=== PATIENT | male | born 1960 | race Caucasian/White ===

== ENCOUNTER → 2019-10-22 09:27 | Outpatient (CLI) | payer BC, SELFPAY ==
--- NOTE | ~2019-10-22 | CT_ITS ---
EXAMINATION: CT abdomen pelvis w con INDICATION: Lower abdominal pain and constipation TECHNIQUE: Computed tomographic images of the abdomen and pelvis were obtained after the administrati on of 100 cc of Omnipaque 350 intravenous contrast. The dose-length product (DLP) was 749.47 mGy-cm. Automated exposure control and iterative reconstruction technique were employed. COMPARISON: None available FINDINGS: Minimal dependent atelectasis is present in the lung bases. The heart size is normal. Cysts of the liver measure 2.2 cm in the left hepatic lobe. Subtle low-attenuation areas of the spleen trino suring up to 8 mm likely represent benign finding such as lymphangiomas. The pancreas, gallbladder, a nd adrenal glands are normal. The kidneys are unremarkable. There is a 3.1 x 3.0 cm fusiform aneurysm of the infrarenal abdominal aorta. Sigmoid diverticulosis is noted. There is a 3.7 cm segment of wal l thickening in the sigmoid colon. No pathologically enlarged abdominal or pelvic lymph nodes are luis ntified. There is no free intraperitoneal gas or evidence of bowel obstruction. A moderate volume of colonic stool is present. There is mild circumferential wall thickening of the bladder, likely due to chronic outlet obstruction or incomplete distention. IMPRESSION: 1. 3.7 cm segment of wall thickening involving the sigmoid colon. Although findings could be infectio us/inflammatory given the adjacent diverticula, malignancy could have a similar appearance. Would rec ommend further evaluation with colonoscopy if not recently performed. Reviewed, dictated and finalized at location A. IMPRESSION: 1. 3.7 cm segment of wall thickening involving the sigmoid colon. Although find ings could be infectious/inflammatory given the adjacent diverticula, malignanc y could have a similar appearance. Would recommend further evaluation with colo noscopy if not recently performed.
[2019-10-22 09:48] LABS: Estimated Glomerular Filt Rate > 60
== END ==
PROVIDERS: PCP Internal Medicine; Visit Provider Internal Medicine
DX: R10.9 Unspecified abdominal pain (principal)
CPT/HCPCS: 74177; Q9967

== ENCOUNTER 2019-11-24 00:34 | Outpatient (CLI) | payer BC, SELFPAY ==
[2019-11-24 18:12] LABS: SARS-CoV-2 RNA PCR Negative
== END 2019-11-24 00:35 | disposition home or self-care (01) ==
LOC: ANHCOVIDDT 00:34
PROVIDERS: PCP Internal Medicine; Visit Provider Internal Medicine Gastroenterology
DX: Z20.828 Contact with and (suspected) exposure to other viral communicable diseases (principal); Z01.812 Encounter for preprocedural laboratory examination
CPT/HCPCS: 87635; C9803; U0003

== ENCOUNTER 2019-11-26 02:16 | Day surgery (SDC) | payer BC, SELFPAY ==
[2019-11-19 15:18] VITALS: BMI 26.8
--- NOTE | 2019-11-25 11:43 | WPDANESEPPF ---
Anes - Initial Pre Proc Eval Procedure: Operation Date: 11/26/19 07:30 Proposed Procedures p Colonoscopy - Serg Salazar MD Date/Time: 11/25/19 11:43 Surgeon: Serg Salazar MD Pre Op Diagnosis: diverticulitis Patient Data Age: 59 Gender: M Height: 1.78 m Weight: 84.9 kg Allergies Allergy/AdvReac Type Severity Reaction Status Date / Time No Known Allergies Allergy Verified 11/26/19 06:29 Home Medications Medication Instructions Recorded Confirmed Type aspirin 81 mg tablet,delayed 81 mg PO DAILY 11/03/19 11/19/19 History release atorvastatin 40 mg tablet 40 mg PO DAILY 11/03/19 11/19/19 History ezetimibe 10 mg tablet 10 mg PO DAILY 11/03/19 11/19/19 History ticagrelor 60 mg tablet 60 mg PO Q12H 11/03/19 11/26/19 History Wellbutrin SR 40 mg PO DAILY 11/19/19 11/19/19 History Patient hx anesthesia problems: none Family hx anesthesia problems: none [facility] Past Medical History Medical History (Updated 11/26/19 @ 06:47 by Margarito Pacheco DO) Abnormal CT scan, colon CAD (coronary artery disease) Diverticulitis large intestine Heart attack 2018 Hyperlipidemia Tobacco abuse Surgical History Surgical History (Updated 11/26/19 @ 06:47 by Margarito Pacheco DO) History of coronary artery stent placement x5 stents, 2018 Social History Social History Smoking status: Current every day smoker Tobacco type: cigarettes Living arrangements: alone Gender identity (if verbalized by the patient): Male Spiritual care concerns: No Anes - Eval Final PreProcedure Day of Procedure 11/25/19 11:43 Patient weight: overweight Heart: regular rate and rhythm Lungs: clear to auscultation and normal air movement Airway: Mallampati scale class II Neurological: alert and oriented Last oral intake: >/= 8 hours ASA classification: III Emergent: no Anesthetic plan: proceed Anesthesia type and monitoring: general GIVS and standard monitoring Informed Consent: The patient's anesthetic plan and its attendant risks and benefits were discussed with the patient/family/POA. Questions were solicited and answers provided to the satisfaction of the patient/family/POA.
[2019-11-26] MEDS: LACTATED RINGERS 1,000 ML 150 ML IV CONT (06:28)
[2019-11-26 06:31] VITALS: BP 123/80; PULSE 97; RESP 18; TEMP 36.4; O2SAT 97; BMI 26.5
--- NOTE | 2019-11-26 07:35 | WPDHPUPDATE1 ---
History and Physical Update Update Date/Time: 11/26/19 07:35 History and Physical has been reviewed, including an updated exam of the patient. There are NO changes in the patient's condition. Risks, benefits, and alternatives have been discussed and questions answered. Patient agrees to proceed with procedure.
[2019-11-26 07:52] VITALS: BP 131/87; PULSE 75; RESP 17; O2SAT 92
[2019-11-26 08:02] VITALS: BP 110/67; PULSE 67; RESP 18; O2SAT 92
[2019-11-26 08:12] VITALS: BP 112/68; PULSE 75; RESP 18; O2SAT 92
== END 2019-11-26 08:25 | disposition home or self-care (01) ==
PROVIDERS: PCP Internal Medicine; Visit Provider Internal Medicine Gastroenterology
PROC: 0DJD8ZZ Inspection of Lower Intestinal Tract, Via Natural or Artificial Opening Endoscopic (ICD-10-PCS; CPT 45378; principal; 2019-11-26 07:30)
DX: Z12.11 Encounter for screening for malignant neoplasm of colon (principal); D12.4 Benign neoplasm of descending colon; K63.5 Polyp of colon; K57.30 Diverticulosis of large intestine without perforation or abscess without bleeding; K64.8 Other hemorrhoids; I25.10 Atherosclerotic heart disease of native coronary artery without angina pectoris; E78.5 Hyperlipidemia, unspecified; I25.2 Old myocardial infarction; Z79.82 Long term (current) use of aspirin; Z79.01 Long term (current) use of anticoagulants; F17.210 Nicotine dependence, cigarettes, uncomplicated; Z95.5 Presence of coronary angioplasty implant and graft
CPT/HCPCS: 45380; 45385; 88305; J2704; J7120

== ENCOUNTER 2021-01-12 10:06 | Outpatient (CLI) | payer BC, SELFPAY ==
[2021-01-12 12:12] LABS: Hematocrit 45.7 % (42.0-52.0); Hemoglobin 15.6 g/dL (14.0-18.0); Mean Corpuscular HGB Conc 34.1 g/dl (32-36); Mean Corpuscular Hemoglobin 29.8 pg (26-34); Mean Corpuscular Volume 87.2 fl (80-100); Mean Platelet Volume 9.4 fl (7.4-10.4); Platelet Count Result 344 k/mm3 (150-375); Red Blood Count 5.24 M/mm3 (4.6-6.20); Red Cell Distribution Width 12.8 % (11.5-14.5); White Blood Count 8.7 K/mm3 (4.5-10.0)
[2021-01-12 12:27] LABS: Alanine Aminotransferase 18 U/L (4-50); Albumin Level 4.4 g/dL (3.5-5.1); Alkaline Phosphatase 77 U/L (38-126); Anion Gap 12 mmol/L (8-16); Aspartate Amino Transferase 25 U/L (17-59); Bilirubin,Total 0.6 mg/dL (0.2-1.3); Blood Urea Nitrogen 12 mg/dL (9-20); CRP < 0.5 mg/dL (<1.0); Carbon Dioxide 19 mmol/L (22-30); Chloride 103 mmol/L (98-107); Estimated Glomerular Filt Rate > 60; Glucose 86 mg/dL (65-110); Potassium 4.1 mmol/L (3.4-5.0); Sodium 134 mmol/L (137-145)
== END 2021-01-12 10:07 | disposition home or self-care (01) ==
LOC: ANHLAB 10:10
PROVIDERS: PCP Internal Medicine; Visit Provider Nurse Practitioner Family
DX: K57.32 Diverticulitis of large intestine without perforation or abscess without bleeding (principal)
CPT/HCPCS: 36415; 80053; 85027; 86140

== ENCOUNTER 2024-07-16 09:03 | Emergency (ER) | payer MEDICARE, SELFPAY ==
--- NOTE | ~2024-07-16 | CT_ITS ---
EXAMINATION: CT abdomen pelvis w con DATE: 07/16/2024 10:22 INDICATION: Left-sided abdominal pain TECHNIQUE: Computed tomography (CT) of the abdomen and pelvis was performed without intravenous contr ast. Automated exposure control and iterative reconstruction technique were employed. The dose-length product was 544.41 mGy-cm. COMPARISON: None FINDINGS: Mild dependent atelectasis in bilateral lower lobes. 7 mm subpleural nodule in the left lower lobe wi th eccentric calcification statistically most likely to represent sequela of old granulomatous diseas e. Heart size is normal. Atherosclerotic coronary artery calcification. No pericardial or pleural eff usion. No significant change in multiple cysts scattered throughout the liver the largest measuring u p to 2.5 cm. Gallbladder, pancreas, bilateral adrenal glands and kidneys are normal. No significant c hange in a 7 mm likely benign low-attenuation splenic cyst versus hemangioma. Splenic calcific locati on consistent with old granulomatous disease. There are several diverticula along the sigmoid colon w ith mild wall thickening and minimal from trace stranding at the proximal sigmoid colon suspicious fo r diverticulitis. Small bowel and appendix are normal. Bladder is normal. Prostatomegaly measuring 4. 3 x 3.8 cm. No free intraperitoneal gas or fluid. No pathologically enlarged abdominal or pelvic lymp hadenopathy. 2 cm subdermal cystic lesion along the anterior pelvic wall along the cephalad margin of the subcutaneous most likely epidermoid/sebaceous cyst. 3.8 cm diameter fusiform infrarenal abdomina l aortic aneurysm. Mild lumbar and lower thoracic spondylosis. IMPRESSION: 1. Radiographically uncomplicated proximal sigmoid diverticulitis. 2. 7 mm subpleural nodule in the left lower lobe with eccentric calcification most likely sequela of old granulomatous disease although given the eccentric positioning of the calcification would recomme nd 6 month follow-up low-dose noncontrast chest CT. 3. Prostatomegaly. Reviewed, dictated and finalized at location A. IMPRESSION: 1. Radiographically uncomplicated proximal sigmoid diverticulitis. 2. 7 mm subpleural nodule in the left lower lobe with eccentric calcification m ost likely sequela of old granulomatous disease although given the eccentric po sitioning of the calcification would recommend 6 month follow-up low-dose nonco ntrast chest CT. 3. Prostatomegaly.
[2024-07-16 09:07] VITALS: BP 123/93; PULSE 86; RESP 15; TEMP 36.4; O2SAT 99
[2024-07-16 09:08] VITALS: BP 123/93; PULSE 81; RESP 16; O2SAT 99
--- OUTSIDE RECORDS SUMMARY | 2024-07-16 09:09 | XMS_ITS | Referral Summary ---
Author Organization [facility] [place] [address] Address [address] [place] [address] Care Team Providers Care Jammer Hooker Name Role Phone Delta Mcneill MD Primary Care Provider [phone] Allergies No known active allergies Medications atorvastatin (LIPITOR) 80 mg tabletIndicati ons:Coronary artery disease involving [place] coronary artery of [place] heart without angina pectoris,Dysli pidemia, goal LDL below 70,Presence of stent in coronary artery Take 0.5 tablets (40 mg total) by mouth daily 30 tablet 11 4 Active clopidogreL (PLAVIX) 75 mg tablet Take 1 tablet (75 mg total) by mouth daily 90 tablet 3 5 04/14/19 26 Active nitroglycerin (NITROSTAT) 0.4 mg SL tabletIndicati ons:Coronary artery disease involving [place] coronary artery of [place] heart without angina pectoris Place 1 tablet (0.4 mg total) under the tongue every 5 (five) minutes as needed for chest pain 60 tablet 5 Active buPROPion XL (WELLBUTRIN XL) 150 mg 24 hr tabletIndicati ons:Tobacco abuse TAKE 1 TABLET(150 MG) BY MOUTH DAILY 90 tablet 5 Active buPROPion XL (WELLBUTRIN XL) 150 mg 24 hr tabletIndicati ons:Tobacco abuse Take 1 tablet (150 mg total) by mouth daily 90 tablet 5 07/16/19 25 Discontinued Active Problems Problem Noted Date Diagnosed Date Angina pectoris, unspecified 04/14/2024 Cardiomyopathy, ischemic 04/15/2018 Tobacco abuse 11/02/2017 Dyslipidemia, goal LDL below 70 11/02/[address] elevation myocardial infarction (S PRABHJOT) 11/02/2017 Presence of stent in coronary artery 11/02/2017 Coronary artery disease invo lving [place] coronary artery of [place] heart without angina pectoris 11/02/2017 Resolved Problems Problem Noted Date Diagnosed Date Resolved Date Angina pectoris, unspecified 04/03/2022 04/14/2024 Social History Tobacco Use Types Packs/Day Years Used Date Smoking Tobacco: Some Days Smokeless Tobacco: Never Tobacco Cessation:Ready to Q uit: Not Asked; Counseling Given: Not Answered Alcohol Use Standard Drinks/Week Comments No 0 (1 standard drink = 0.6 oz pur e alcohol) Sex and Gender Information Value Date Recorded Sex Assigned at Not on file 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 Gender Identity Not on file Sexual Orientation Not on file Last Filed Vital Signs Vital Sign Reading Time Taken Comments Blood Pressure 112/78 04/14/2024 7:52 AM SENIOR IT BUSINESS ANALYST Pulse 78 04/14/2024 7:52 AM SENIOR IT BUSINESS ANALYST Temperature - - Respiratory Rate - - Oxygen Saturation 97% 04/14/2024 7:52 AM SENIOR IT BUSINESS ANALYST Inhaled Oxygen Concentration - - Weight 87.1 kg (192 lb) 04/14/2024 7:52 AM SENIOR IT BUSINESS ANALYST Height 177.8 cm (5' 10) 04/14/2024 7:52 AM SENIOR IT BUSINESS ANALYST Body Mass Index 27.55 04/14/2024 7:52 AM SENIOR IT BUSINESS ANALYST Plan of Treatment Not on file Insurance [facility] ACCESS CHOICE Care Teams Jammer Hooker Relationship Specialty Start Date End Date Delta Mcneill MD [address] [place] [id number] PCP - General Internal Medicine 10/13/19
--- OUTSIDE RECORDS SUMMARY | 2024-07-16 09:09 | XMS_ITS | Clinical Summary ---
Author Organization [facility] [place] [address] Address [address] [place] [address] Care Team Providers Care Technical Sme Name Role Phone Delta Mcneill MD Primary Care Provider [phone] Allergies No known active allergies Medications atorvastatin (LIPITOR) 80 mg tabletIndicati ons:Coronary artery disease involving [place] coronary artery of [place] heart without angina pectoris,Dysli pidemia, goal LDL below 70,Presence of stent in coronary artery Take 0.5 tablets (40 mg total) by mouth daily 30 tablet 11 4 Active clopidogreL (PLAVIX) 75 mg tablet Take 1 tablet (75 mg total) by mouth daily 90 tablet 3 5 04/14/19 26 Active nitroglycerin (NITROSTAT) 0.4 mg SL tabletIndicati ons:Coronary artery disease involving [place] coronary artery of [place] heart without angina pectoris Place 1 tablet [...] artery 11/02/2017 Coronary artery disease invo lving [place] coronary artery of [place] heart without angina pectoris 11/02/2017 Resolved Problems Problem Noted Date Diagnosed Date Resolved Date Angina pectoris, unspecified 04/03/2022 04/14/2024 Medical History Medical History Date Comments Heart attack (HCC) Family History Medical History Relation Name Comments Pulmonary embolism Father Liver cancer Mother Relation Name Status Comments Father Mother Social History Tobacco Use Types Packs/Day Years Used Date Smoking Tobacco: Some Days Smokeless Tobacco: Never Tobacco Cessation:Ready to Q uit: Not Asked; Counseling Given: Not Answered Alcohol Use Standard Drinks/Week Comments No 0 (1 standard drink = 0.6 oz pur e alcohol) Sex and Gender Information Value Date Recorded Sex Assigned at Not on file 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 Gender Identity Not on file Sexual Orientation Not on file Obstetrics History Last Filed Vital Signs Vital Sign Reading Time Taken Comments Blood Pressure 112/78 04/14/2024 7:52 AM TRUCK DRIVING Pulse 78 04/14/2024 7:52 AM TRUCK DRIVING Temperature - - Respiratory Rate - - Oxygen Saturation 97% 04/14/2024 7:52 AM TRUCK DRIVING Inhaled Oxygen Concentration - - Weight 87.1 kg (192 lb) 04/14/2024 7:52 AM TRUCK DRIVING Height 177.8 cm (5' 10) 04/14/2024 7:52 AM TRUCK DRIVING Body Mass Index 27.55 04/14/2024 7:52 AM TRUCK DRIVING Plan of Treatment Health Maintenance Due Date Last Done Comments Colon Cancer Screening-Colonoscopy 1959 Depression Screening 1959 Fall Risk Assessment 1959 Hepatitis C Screening 1959 Prostate Cancer Screening-PSA 1959 DTaP/Tdap/Td Vaccine (1 - Tdap) 06/08/1970 Hepatitis B Screening 06/08/1977 Pneumococcal vaccine 65+ (1 of 2 - PCV) 06/08/1978 Zoster Vaccine (1 of 2) 06/08/2009 Covid-19 Vaccine (3 - season) 10/21/202312/2020, 09/01/2020 Abdominal Aortic Aneurysm (AAA) Screen 06/08/2024 Well Visit 65+ 06/08/2024 Influenza Vaccine (Season Ended) 2024 Insurance [employer] ACCESS CHOICE Care Teams Technical Sme Relationship Specialty Start Date End Date Delta Mcneill MD [address] [place] [id number] PCP - General Internal Medicine 10/13/19
[2024-07-16 09:16] VITALS: BP 115/79; PULSE 80; RESP 18; O2SAT 98
--- OUTSIDE RECORDS SUMMARY | 2024-07-16 09:31 | XMS_ITS | Clinical Summary ---
Author Organization [facility] [place] [address] Address [address] [place] [address] Care Team Providers Care Geochemistry Teacher Name Role Phone Delta Mcneill MD Primary Care Provider [phone] Allergies No known active allergies Medications atorvastatin (LIPITOR) 80 mg tabletIndicati ons:Coronary artery disease involving [place] coronary artery of [place] heart without angina pectoris,Dysli pidemia, goal LDL below 70,Presence of stent in coronary artery Take 0.5 tablets (40 mg total) by mouth daily 30 tablet 11 4 Active clopidogreL (PLAVIX) 75 mg tablet Take 1 tablet (75 mg total) by mouth daily 90 tablet 3 5 04/14/19 26 Active nitroglycerin (NITROSTAT) 0.4 mg SL tabletIndicati ons:Coronary artery disease involving [place] coronary artery of [place] heart without angina pectoris Place 1 tablet [...] artery 11/02/2017 Coronary artery disease invo lving [place] coronary artery of [place] heart without angina pectoris 11/02/2017 Resolved Problems [...] on file Legal Sex Male 12:39 AM PROGRAM CHECKER Gender Identity Not on file Sexual Orientation Not on file Obstetrics History Last Filed Vital Signs Vital Sign Reading Time Taken Comments Blood Pressure 112/78 04/14/2024 7:52 AM PROGRAM CHECKER Pulse 78 04/14/2024 7:52 AM PROGRAM CHECKER Temperature - - Respiratory Rate - - Oxygen Saturation 97% 04/14/2024 7:52 AM PROGRAM CHECKER Inhaled Oxygen Concentration - - Weight 87.1 kg (192 lb) 04/14/2024 7:52 AM PROGRAM CHECKER Height 177.8 cm (5' 10) 04/14/2024 7:52 AM PROGRAM CHECKER Body Mass Index 27.55 04/14/2024 7:52 AM PROGRAM CHECKER Plan of Treatment Health Maintenance Due Date [...] 2024 Insurance [employer] ACCESS CHOICE Care Teams Geochemistry Teacher Relationship Specialty Start Date End Date Delta Mcneill MD [address] [place] [id number] PCP - General Internal Medicine 10/13/19
--- OUTSIDE RECORDS SUMMARY | 2024-07-16 09:31 | XMS_ITS | Referral Summary ---
Author Organization [facility] [place] [address] Address [address] [place] [address] Care Team Providers Care Licensing Representative Name Role Phone Delta Mcneill MD Primary Care Provider [phone] Allergies No known active allergies Medications atorvastatin (LIPITOR) 80 mg tabletIndicati ons:Coronary artery disease involving [place] coronary artery of [place] heart without angina pectoris,Dysli pidemia, goal LDL below 70,Presence of stent in coronary artery Take 0.5 tablets (40 mg total) by mouth daily 30 tablet 11 4 Active clopidogreL (PLAVIX) 75 mg tablet Take 1 tablet (75 mg total) by mouth daily 90 tablet 3 5 04/14/19 26 Active nitroglycerin (NITROSTAT) 0.4 mg SL tabletIndicati ons:Coronary artery disease involving [place] coronary artery of [place] heart without angina pectoris Place 1 tablet [...] artery 11/02/2017 Coronary artery disease invo lving [place] coronary artery of [place] heart without angina pectoris 11/02/2017 Resolved Problems [...] on file Legal Sex Male 12:39 AM PAYROLL TAX ANALYST Gender Identity Not on file Sexual Orientation Not on file Last Filed Vital Signs Vital Sign Reading Time Taken Comments Blood Pressure 112/78 04/14/2024 7:52 AM PAYROLL TAX ANALYST Pulse 78 04/14/2024 7:52 AM PAYROLL TAX ANALYST Temperature - - Respiratory Rate - - Oxygen Saturation 97% 04/14/2024 7:52 AM PAYROLL TAX ANALYST Inhaled Oxygen Concentration - - Weight 87.1 kg (192 lb) 04/14/2024 7:52 AM PAYROLL TAX ANALYST Height 177.8 cm (5' 10) 04/14/2024 7:52 AM PAYROLL TAX ANALYST Body Mass Index 27.55 04/14/2024 7:52 AM PAYROLL TAX ANALYST Plan of Treatment Not on file Insurance [facility] ACCESS CHOICE Care Teams Licensing Representative Relationship Specialty Start Date End Date Delta Mcneill MD [address] [place] [id number] PCP - General Internal Medicine 10/13/19
[2024-07-16 09:41] LABS: Basophils Absolute Auto 0.1 K/mm3 (0.0-0.1); Basophils Percent Auto 0.9 % (0.2-1.2); Eosinophils Absolute Auto 0.2 K/mm3 (0-0.3); Eosinophils Percent Auto 2.7 % (0-4.4); Hematocrit 49.4 % (42.0-52.0); Hemoglobin 16.3 g/dL (14.0-18.0); Immature Granulocyte Absolute 0.02 K/mm3 (0.00-0.031); Immature Granulocyte Percent A 0.2 % (0-0.5); Lymphocytes Percent Auto 31.2 % (18.3-44.2); Mean Corpuscular Hemoglobin 29.5 pg (26-34); Mean Corpuscular Volume 89.3 fl (80-100); Mean Platelet Volume 9.8 fl (7.4-10.4); Monocytes Absolute Auto 0.8 K/mm3 (0.1-0.6); Monocytes Percent Auto 9.4 % (2.6-8.5); Neutrophils Absolute Auto 4.5 K/mm3 (1.3-6.7); Neutrophils Percent Auto 55.6 % (45.5-73.1); Platelet Count Result 274 k/mm3 (150-375); Red Blood Count 5.53 M/mm3 (4.6-6.20)
[2024-07-16 09:43] LABS: Add Urine Microscopic? NO; Appearance Urine Clear (Clear); Bilirubin Urine Negative (Negative); Blood Urine Negative (Negative); Color Urine Yellow (Yellow); Glucose Urine UA Negative (Negative); Ketones Urine Trace mg/dL (Negative); Leukocyte Esterase Ur Negative LEU/UL (Negative); Nitrate Urine Negative (Negative); Protein Urine Negative (Negative); Specific Grav Ur 1.022 (1.001-1.035); pH Urine 6.5 (5.0-9.0)
[2024-07-16 09:53] LABS: Alanine Aminotransferase 24 U/L (6-50); Albumin Level 4.2 g/dL (3.5-5.1); Alkaline Phosphatase 92 U/L (38-126); Anion Gap 10 mmol/L (4-12); Aspartate Amino Transferase 27 U/L (17-59); Bilirubin,Total 0.6 mg/dL (0.2-1.3); Blood Urea Nitrogen 17 mg/dL (9-20); Calcium 8.9 mg/dL (8.4-10.2); Carbon Dioxide 26 mmol/L (22-30); Chloride 103 mmol/L (98-107); Estimated CRCL calculation 60 ml/min; Estimated Glomerular Filt Rate > 60; Glucose 98 mg/dL (65-110); Lipase 52 U/L (23-300); Sodium 139 mmol/L (137-145)
[2024-07-16 10:00] VITALS: BP 119/73; PULSE 80; RESP 16; O2SAT 95
--- NOTE | 2024-07-16 10:09 | ED.ABDPAIN ---
HPI - Abdominal Pain General Chief Complaint: Abdominal Pain Stated Complaint: flank pain, abd pain Time Seen by Provider: 07/16/24 09:09 Source: patient Mode of arrival: ambulatory Limitations: no limitations History of Present Illness HPI narrative: This is a 64 year old male that presents to the ER for left sided flank/abdominal pain. Reports ongoing over the last couple of weeks. Worsening over the last couple of days. Reports history of diverticulitis. Denies fevers, vomiting, diarrhea, dysuria, hematuria. Related Data Home Medications ?Medication ?Instructions ?Recorded ?Confirmed ?Last Taken ?Type aspirin 81 mg tablet,delayed 81 mg PO DAILY 11/03/19 01/20/21 11/23/19 History release (Adult Aspirin Regimen) atorvastatin 40 mg tablet 40 mg PO DAILY 11/03/19 01/20/21 11/23/19 History ezetimibe 10 mg tablet 10 mg PO DAILY 11/03/19 01/20/21 11/23/19 History ticagrelor 60 mg tablet (Brilinta) 60 mg PO Q12H 11/03/19 01/20/21 11/23/19 History Wellbutrin SR 40 mg PO DAILY 11/19/19 01/20/21 11/23/19 History ciprofloxacin HCl 500 mg tablet 500 mg PO Q12H 01/20/21 01/20/21 Unknown History (Cipro) Allergies Allergy/AdvReac Type Severity Reaction Status Date / Time No Known Allergies Allergy Verified 01/20/21 10:14 Review of Systems Review of Systems: CONSTITUTIONAL: Denies fever GASTROINTESTINAL: Reports abdominal pain. Denies nausea, vomiting, or diarrhea. GENITOURINARY: Denies dysuria or hematuria. All systems reviewed & are unremarkable except as noted in HPI and below PMFSH Past Medical History Medical History Abnormal CT scan, colon CAD (coronary artery disease) Diverticulitis large intestine Heart attack 2018 Hyperlipidemia Tobacco abuse Surgical History Surgical History History of coronary artery stent placement x5 stents, 2018 Social History Social History Tobacco type: cigarettes Living arrangements: alone Gender identity (if verbalized by the patient): Male Spiritual care concerns: No Exam Narrative: GENERAL: Well-appearing, well-nourished, and in no acute distress. HEAD: Normocephalic, atraumatic. EYES: EOMI. CHEST: Clear to auscultation. No respiratory distress. No wheezes rales or rhonchi HEART: Regular rate and rhythm. No murmur heard. Normal peripheral pulses. ABDOMEN: Soft, nontender, nondistended, normal active bowel sounds. EXTREMITIES: Normal range of motion. No edema. SKIN: Warm, dry, no rash. NEURO: No focal deficits. Alert and oriented x3. PSYCH: Normal mood and affect Course Course Emergency Course: Patient updated on his workup and agrees with plan of care Vital Signs Vital signs: Vital Signs Temperature 97.5 F L 07/16/24 09:07 Pulse Rate 86 07/16/24 09:07 Respiratory Rate 15 07/16/24 09:07 Blood Pressure 123/93 H 07/16/24 09:07 Pulse Oximetry 99 07/16/24 09:07 Oxygen Delivery Room Air 07/16/24 09:07 Temperature 97.5 F L 07/16/24 09:07 Pulse Rate 86 07/16/24 09:07 Respiratory Rate 15 07/16/24 09:07 Blood Pressure 123/93 H 07/16/24 09:07 Pulse Oximetry 99 07/16/24 09:07 Oxygen Delivery Room Air 07/16/24 09:07 MDM - Abdominal Pain MDM Narrative Medical decision making narrative: Patient presents to the emergency department for left-sided abdominal pain. He is afebrile and nontoxic appearing. Cbc without leukocytosis. Metabolic panel without concerning findings. Urine without evidence of infection. CT abdomen/pelvis shows uncomplicated sigmoid diverticulitis. Also shows a left lung nodule. Prostatomegaly. Patient updated on his workup and agrees with plan of care. Will be started on oral antibiotics. He is to follow up with his primary care provider. He was given warnings to return to the ER Differential Diagnosis Differential diagnosis: Likely calculus of kidney, constipation and diverticulitis Lab Data Attestation: I reviewed the patient's lab results. 07/16/24 09:33 07/16/24 09:33 Labs: Lab Results 07/16/24 Range/Units 09:33 WBC 8.0 (4.5-10.0) K/mm3 RBC 5.53 (4.6-6.20) M/mm3 Hgb 16.3 (14.0-18.0) g/dL Hct 49.4 (42.0-52.0) % MCV 89.3 (80-100) fl MCH 29.5 (26-34) pg MCHC 33.0 (32-36) g/dl RDW 13.0 (11.5-14.5) % Plt Count 274 (150-375) k/mm3 MPV 9.8 (7.4-10.4) fl Immature Gran % (Auto) 0.2 (0-0.5) % Neut % (Auto) 55.6 (45.5-73.1) % Lymph % (Auto) 31.2 (18.3-44.2) % Mcduffie % (Auto) 9.4 H (2.6-8.5) % Eos % (Auto) 2.7 (0-4.4) % Baso % (Auto) 0.9 (0.2-1.2) % Lymph # (Auto) 2.50 (0.9-3.2) K/mm3 Mcduffie # (Auto) 0.8 H (0.1-0.6) K/mm3 Eos # (Auto) 0.2 (0-0.3) K/mm3 Baso # (Auto) 0.1 (0.0-0.1) K/mm3 Abs Immat Gran (auto) 0.02 (0.00-0.031) K/mm3 Absolute Neuts (auto) 4.5 (1.3-6.7) K/mm3 Absolute Nucleated RBC 0.000 (0.0-0.012) K/mm3 Nucleated RBC % 0.0 (0.0-0.2) % Sodium 139 (137-145) mmol/L Potassium 4.0 (3.4-5.0) mmol/L Chloride 103 (98-107) mmol/L Carbon Dioxide 26 (22-30) mmol/L Anion Gap 10 (4-12) mmol/L BUN 17 (9-20) mg/dL Creatinine 1.13 (0.7-1.3) mg/dL Estim Creat Clear Calc 60 ml/min Estimated GFR > 60 (59 - ) Glucose 98 (65-110) mg/dL Calcium 8.9 (8.4-10.2) mg/dL Total Bilirubin 0.6 (0.2-1.3) mg/dL AST 27 (17-59) U/L ALT 24 (6-50) U/L Alkaline Phosphatase 92 (38-126) U/L Total Protein 8.0 (6.3-8.2) g/dL Albumin 4.2 (3.5-5.1) g/dL Lipase 52 (23-300) U/L Urine Color Yellow (Yellow) Urine Appearance Clear (Clear) Urine pH 6.5 (5.0-9.0) Ur Specific Sylvester 1.022 (1.001-1.035) Urine Protein Negative (Negative) mg/dL Urine Glucose (UA) Negative (Negative) mg/dL Urine Ketones Trace H (Negative) mg/dL Ur Blood (Man) Negative (Negative) Urine Nitrate Negative (Negative) Urine Bilirubin Negative (Negative) Urine Urobilinogen 1.0 (<2.0) mg/dL Leukocyte Esterase Rfl Negative (Negative) DARREL/UL Imaging Data Radiologist's impression: ITS Impressions Abdomen/Pelvis CT 07/16/24 10:29 IMPRESSION: 1. Radiographically uncomplicated proximal sigmoid diverticulitis. 2. 7 mm subpleural nodule in the left lower lobe with eccentric calcification most likely sequela of old granulomatous disease although given the eccentric positioning of the calcification would recommend 6 month follow-up low-dose noncontrast chest CT. 3. Prostatomegaly. Critical Care Time Critical Care Time Critical Care Time: No Discharge Plan Discharge Clinical Impression: Diverticulitis, Lung nodule Patient Disposition: Home Condition: Stable Instructions: Antibiotic Form, Diverticulitis (ED), Diverticulitis Diet (ED), Pulmonary Nodules (ED) Additional Instructions: Return to the ER if you experience fever, abdominal pain with nausea and vomiting, you are unable to keep down liquids or solids, blood in the stool or any other symptoms that are concerning to you Remain well hydrated. Take oral antibiotics as prescribed Follow up with your primary care doctor The radiologist is seeing a lung nodule on your imaging and recommending follow up imaging in 6 months to monitor Patient Language: Citizen Of [place] Prescriptions: New amoxicillin-pot clavulanate 875-125 mg tablet 1 tablet PO Q8H 10 Days Qty: 30 0RF No Action aspirin [Adult Aspirin Regimen] 81 mg tablet,delayed release (DR/EC) 81 mg PO DAILY ezetimibe 10 mg tablet 10 mg PO DAILY atorvastatin 40 mg tablet 40 mg PO DAILY Brilinta 60 mg tablet 60 mg PO Q12H ciprofloxacin HCl [Cipro] 500 mg tablet 500 mg PO Q12H Wellbutrin SR capsule 40 mg PO DAILY Follow-up/Referrals: Louann Santos, SUPPLY CHAIN DESIGN MANAGER-C [Primary Care Provider] -
[2024-07-16 10:30] VITALS: BP 123/74; PULSE 78; RESP 16; O2SAT 94
== END 2024-07-16 10:55 | disposition home or self-care (01) ==
PROVIDERS: Emergency Provider Physician Assistant; PCP Nurse Practitioner Family
DX: K57.32 Diverticulitis of large intestine without perforation or abscess without bleeding (principal); R91.1 Solitary pulmonary nodule; I25.10 Atherosclerotic heart disease of native coronary artery without angina pectoris; I25.2 Old myocardial infarction; E78.5 Hyperlipidemia, unspecified; Z95.5 Presence of coronary angioplasty implant and graft; N40.0 Benign prostatic hyperplasia without lower urinary tract symptoms; Z79.82 Long term (current) use of aspirin; Z79.899 Other long term (current) drug therapy; Z79.02 Long term (current) use of antithrombotics/antiplatelets
CPT/HCPCS: 36415; 74177; 80053; 81003; 83690; 85025; 99284; Q9967

== ENCOUNTER 2024-10-17 08:44 | Emergency (ER) | payer MEDICARE, SELFPAY ==
--- OUTSIDE RECORDS SUMMARY | 2024-10-17 08:49 | XMS_ITS | Encounter Summary ---
Author Organization [facility] Healthcare Address [address] [place] [address] Care Team Providers Care Hand Almond Blancher Name Role Phone Referring, Unknown Primary Care Provider Unav ailable No, Physician Primary Care Provider [phone] Delta Mcneill MD Primary Care Provider [phone] Encounter Details Date Type Department Care Team (Late st Contact Info) Description 10/18/2017 Orders Only [facility] [place] [address] [place] [id number] Scanning, Provider Social History Tobacco Use Types Packs/Day Years Used Date Smoking Tobacco: Never Assessed Sex and Gender Information Value Date Recorded Sex Assigned at Not on file 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 Gender Identity Not on file Sexual Orientation Not on file documented as of this encounter Plan of Treatment Not on file documented as of this encounter Procedures Procedure Name Priority Date/Time Associated Diagnosis Comments SCAN - LABS 10/18/2017 documented in this encounter Results * SCAN - LABS (10/18/2017) us Provider Scanning Final Result documented in this encounter Visit Diagnoses Not on filedocumented in this encounter Care Teams Hand Almond Blancher Relationship Specialty Start Date End Date Referring, Unknown, PCP - General Pediatrics 10/04/17 11/01/17 No, Physician PCP - General 11/02/17 10/12/19 Delta Mcneill MD [address] [place] [id number] PCP - General Internal Medicine 10/13/19 documented as of this encounter
--- OUTSIDE RECORDS SUMMARY | 2024-10-17 08:49 | XMS_ITS | Clinical Summary ---
Author Organization [facility] [place] [address] Address [address] [place] [address] Care Team Providers Care Unclaimed Property Manager Name Role Phone Delta Mcneill MD Primary Care Provider [phone] Allergies No known active allergies Medications atorvastatin (LIPITOR) 80 mg tabletIndicatio ns:Coronary artery disease involving ute coronary artery of ute heart without angina pectoris,Dyslip idemia, goal LDL below 70,Presence of stent in coronary artery Take 0.5 tablets (40 mg total) by mouth daily 30 tablet 11 04/09/2023 Active clopidogreL (PLAVIX) 75 mg tablet Take 1 tablet (75 mg total) by mouth daily 90 tablet 3 04/14/2024 Active nitroglycerin (NITROSTAT) 0.4 mg SL tabletIndicatio ns:Coronary artery disease involving ute coronary artery of ute heart without angina pectoris Place 1 tablet (0.4 mg total) under the tongue every 5 (five) minutes as needed for chest pain 60 tablet 04/14/2024 Active buPROPion XL (WELLBUTRIN XL) 150 mg 24 hr tabletIndicatio ns:Tobacco abuse TAKE 1 TABLET(150 MG) BY MOUTH DAILY 90 tablet 07/15/2024 Active Active Problems Problem Noted Date Diagnosed Date Angina pectoris, unspecified 04/14/2024 Cardiomyopathy, ischemic 04/15/2018 Tobacco abuse 11/02/2017 Dyslipidemia, goal LDL below 70 11/02/[address] elevation myocardial infarction (S PRABHJOT) 11/02/2017 Presence of stent in coronary artery 11/02/2017 Coronary artery disease invo lving ute coronary artery of ute heart without angina pectoris 11/02/2017 Resolved Problems [...] on file 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 Gender Identity Not on file Sexual Orientation Not on file Obstetrics History Last Filed Vital Signs Vital Sign Reading Time Taken Comments Blood Pressure 112/78 04/14/2024 7:52 AM NUMERICAL CONTROL MACHINE MACHINIST Pulse 78 04/14/2024 7:52 AM NUMERICAL CONTROL MACHINE MACHINIST Temperature - - Respiratory Rate - - Oxygen Saturation 97% 04/14/2024 7:52 AM NUMERICAL CONTROL MACHINE MACHINIST Inhaled Oxygen Concentration - - Weight 87.1 kg (192 lb) 04/14/2024 7:52 AM NUMERICAL CONTROL MACHINE MACHINIST Height 177.8 cm (5' 10) 04/14/2024 7:52 AM NUMERICAL CONTROL MACHINE MACHINIST Body Mass Index 27.55 04/14/2024 7:52 AM NUMERICAL CONTROL MACHINE MACHINIST Plan of Treatment Health Maintenance Due Date [...] 06/08/2024 Well Visit 65+ 06/08/2024 Influenza Vaccine (#1) 2024 Insurance ANTH ACCESS CHOICE Care Teams Unclaimed Property Manager Relationship Specialty Start Date End Date Delta Mcneill MD [address] [place] [id number] PCP - General Internal Medicine 10/13/19
[2024-10-17 08:56] VITALS: BP 127/76; PULSE 78; RESP 18; TEMP 36.2; O2SAT 97
--- OUTSIDE RECORDS SUMMARY | 2024-10-17 09:10 | XMS_ITS | Clinical Summary ---
Author Organization [facility] [place] [address] Address [address] [place] [address] Care Team Providers Care Lending Manager Name Role Phone Delta Mcneill MD Primary Care Provider [phone] Allergies No known active allergies Medications atorvastatin (LIPITOR) 80 mg tabletIndicatio ns:Coronary artery disease involving [place] coronary artery of [place] heart without angina pectoris,Dyslip idemia, goal LDL below 70,Presence of stent in coronary artery Take 0.5 tablets (40 mg total) by mouth daily 30 tablet 11 04/09/2023 Active clopidogreL (PLAVIX) 75 mg tablet Take 1 tablet (75 mg total) by mouth daily 90 tablet 3 04/14/2024 Active nitroglycerin (NITROSTAT) 0.4 mg SL tabletIndicatio ns:Coronary artery disease involving [place] coronary artery of [place] heart without angina pectoris Place 1 tablet [...] artery 11/02/2017 Coronary artery disease invo lving [place] coronary artery of [place] heart without angina pectoris 11/02/2017 Resolved Problems [...] on file 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 Gender Identity Not on file Sexual Orientation Not on file Obstetrics History Last Filed Vital Signs Vital Sign Reading Time Taken Comments Blood Pressure 112/78 04/14/2024 7:52 AM FIELD PIPELINES SUPERVISOR Pulse 78 04/14/2024 7:52 AM FIELD PIPELINES SUPERVISOR Temperature - - Respiratory Rate - - Oxygen Saturation 97% 04/14/2024 7:52 AM FIELD PIPELINES SUPERVISOR Inhaled Oxygen Concentration - - Weight 87.1 kg (192 lb) 04/14/2024 7:52 AM FIELD PIPELINES SUPERVISOR Height 177.8 cm (5' 10) 04/14/2024 7:52 AM FIELD PIPELINES SUPERVISOR Body Mass Index 27.55 04/14/2024 7:52 AM FIELD PIPELINES SUPERVISOR Plan of Treatment Health Maintenance Due Date [...] 2024 Insurance ANTH ACCESS CHOICE Care Teams Lending Manager Relationship Specialty Start Date End Date Delta Mcneill MD [address] [place] [id number] PCP - General Internal Medicine 10/13/19
--- OUTSIDE RECORDS SUMMARY | 2024-10-17 09:10 | XMS_ITS | Encounter Summary ---
Author Organization [facility] Healthcare Address [address] [place] [address] Care Team Providers Care Molded Parts Inspector Name Role Phone Referring, Unknown Primary Care Provider Unav ailable No, Physician Primary Care Provider [phone] Delta Mcneill MD Primary Care Provider [phone] Encounter Details Date Type Department Care Team (Late st Contact Info) Description 10/18/2017 Orders Only [facility] [place] Health Information Management [address] [place] [id number] Scanning, Provider Social History Tobacco Use Types Packs/Day Years Used Date Smoking Tobacco: Never Assessed Sex and Gender Information Value Date Recorded Sex Assigned at Not on file 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
--- NOTE | 2024-10-17 09:23 | ED.EYEPROB ---
HPI - Eye Problem General Chief complaint: Eye Problems Stated complaint: R watery eye/irritation Time Seen by Provider: 10/17/24 09:15 Source: patient Mode of arrival: ambulatory Limitations: no limitations History of Present Illness HPI Narrative: Ja is a 64-year-old male patient presenting to the clinic today with complaints right eye irritation and watering x1 week. He reports he has been working on his club house and is unsure if he may have gotten some saw dust or something in his eye. Eye is red. He denies any itching. States it is just irritated. No painful around the eyelids. States that the eye watering is making his nose run. He denies any fevers, chills, body aches. Related Data Home Medications ?Medication ?Instructions ?Recorded ?Confirmed ?Last Taken ?Type atorvastatin 40 mg tablet 40 mg PO DAILY 11/03/19 01/20/21 11/23/19 History clopidogrel 75 mg tablet mg 10/17/24 Unknown History Allergies Allergy/AdvReac Type Severity Reaction Status Date / Time No Known Allergies Allergy Verified 10/17/24 09:13 Review of Systems Review of Systems: Pertinent positives per HPI. Patient denies any fever, chills, rash, headache, visual changes, dizziness, cough, runny nose, sore throat, shortness of breath, chest pain, palpitations, nausea, vomiting, diarrhea, constipation, abdominal pain, or any urinary issues. [facility] Past Medical History Medical History Hyperlipidemia Abnormal CT scan, colon Tobacco abuse CAD (coronary artery disease) Diverticulitis large intestine Heart attack 2018 Surgical History Surgical History History of coronary artery stent placement x5 stents, 2018 Social History Social History Tobacco type: cigarettes Living arrangements: alone Gender identity (if verbalized by the patient): Male Spiritual care concerns: No Comments At the time of my signature, I reviewed and agree with the nursing past medical, surgical, social, and family history. There is no relevant family history pertinent to the patient complaint. Exam Narrative: General: Well-developed, well nourished, in no apparent distress Head: Normocephalic, atraumatic Eyes: Pupils equally round and reactive to light bilaterally, EOM intact, left sclera and conjunctive clear, no discharge, lids normal, right sclera and injected and conjunctiva mildly injected with clear discharge, mild lid swelling. Ears: TMs intact and clear, ear canals clear, no drainage, grossly hearing normal. Nose: Nares patent, no discharge, no inflammation, no sinus tenderness. Mouth: Oropharynx without lesions or masses, good dentition, MMM. Neck: Supple, trachea midline, no enlargement of anterior or posterior cervical nodes, no thyroid masses or goiter palpable. Cardio: Regular rate and rhythm, s1 and s2 normal, no murmur appreciated. Resp: Clear to auscultation bilaterally anteriorly and posteriorly, no rhonchi, rales, wheezing or rubs Course Course Emergency Course: Portions of this record may have been created with voice recognition software. Level of Care: Express Care Visit Vital Signs Vital signs: Vital Signs Temperature 36.2 C L 10/17/24 08:56 Pulse Rate 78 10/17/24 08:56 Respiratory Rate 18 10/17/24 08:56 Blood Pressure 127/76 10/17/24 08:56 Pulse Oximetry 97 10/17/24 08:56 Oxygen Delivery Room Air 10/17/24 08:56 Temperature 36.2 C L 10/17/24 08:56 Pulse Rate 78 10/17/24 08:56 Respiratory Rate 18 10/17/24 08:56 Blood Pressure 127/76 10/17/24 08:56 Pulse Oximetry 97 10/17/24 08:56 Oxygen Delivery Room Air 10/17/24 08:56 Vital signs reviewed MDM - Eye Problem MDM Narrative Medical decision making narrative: complaints right eye irritation and watering x1 week. He reports he has been working on his club house and is unsure if he may have gotten some saw dust or something in his eye. Eye is red. He denies any itching. States it is just irritated. No painful around the eyelids. States that the eye watering is making his nose run. He denies any fevers, chills, body aches. Differential Diagnosis Differential diagnosis: Likely corneal abrasion, conjunctivitis, acute iritis, hyphema, periorbital cellulitis, subconjunctival hemorrhage, glaucoma, corneal ulcer, ruptured globe and other (Allergies) Discharge Plan Discharge Clinical Impression: Irritation of right eye Patient Disposition: Home Condition: Stable Instructions: Antibiotic Form, Eye Pain (ED) Additional Instructions: No corneal abrasion or foreign body was visualized on exam today Practice good hand washing techniques Avoid touching eyes Instill eyedrops as prescribed-azelastine eyedrops May use warm moist washcloth to help remove eye discharge If eyes are matted shut-do not pry eyes open-use a warm moist cloth to loosen matting and wipe matter away from eye May take Tylenol/Motrin as needed for pain or fever May take Benadryl as needed for itching Follow-up with your PCP in 3-5 days if symptoms persist or sooner if they worsen Go to the emergency room if you develop any fever that is not controlled by Tylenol or Motrin, loss of vision, eye pain, increase eye swelling,visual changes, headache, confusion, lethargy, weakness, chest pain, or shortness of breath. Patient Language: Thai Prescriptions: New azelastine 0.05 % drops 1 drp EACH EYE BID 7 Days Qty: 6 0RF No Action clopidogrel 75 mg tablet atorvastatin 40 mg tablet 40 mg PO DAILY Follow-up/Referrals: Louann Santos [facility] [Primary Care Provider, [facility]] Time of Disposition: 09:39 Quality NIHSS Nursing Documentation ED NIHSS nursing documentation: reviewed/agree
[2024-10-17] MEDS: DACRIOSE EYE IRRIGATION 118 ML BOTTLE RIGHT EYE (09:25)
[2024-10-17] MEDS: FLUORESCEIN SOD 1 MG/STRIP RIGHT EYE (09:26)
[2024-10-17] MEDS: TETRACAINE HCL 0.5% OPHTH SOLN 4 ML BTL RIGHT EYE (09:26)
== END 2024-10-17 09:44 | disposition home or self-care (01) ==
PROVIDERS: Emergency Provider Nurse Practitioner Family; PCP Nurse Practitioner Family
DX: H57.11 Ocular pain, right eye (principal); I25.10 Atherosclerotic heart disease of native coronary artery without angina pectoris; I25.2 Old myocardial infarction; E78.5 Hyperlipidemia, unspecified
CPT/HCPCS: 99213; A9270; G0463